=== PATIENT | male | born 1970 | race Caucasian/White ===

== ENCOUNTER 2018-09-20 07:55 | Emergency (ER) | payer BC ==
[~2018-09-20] VITALS: Ht 175.3 cm; Wt 100.0 kg
[2018-09-20] MEDS ORDERED: KETOROLAC 60MG/2ML VIAL IM ONE (09:00)
[2018-09-20] MEDS ORDERED: TETANUS, DIPHTHERIA, PERTUSSIS VAC/PF 0.5ML (>7YR OLD) IM ONE (10:45)
[2018-09-20 11:14] VITALS: BP 138/89
== END 2018-09-20 11:14 | disposition home or self-care (01) ==
LOC: ER 07:55
DX: S01.01XA Laceration without foreign body of scalp, initial encounter (principal); S09.8XXA Other specified injuries of head, initial encounter; F17.210 Nicotine dependence, cigarettes, uncomplicated; V00.831A Fall from motorized mobility scooter, initial encounter; Y93.89 Activity, other specified; Y92.018 Other place in single-family (private) house as the place of occurrence of the external cause
CPT/HCPCS: 12001; 70450; 90471; 90715; 96372; 99284; J1885